=== PATIENT | female | born 1990 | race Caucasian/White ===

== ENCOUNTER → 2021-10-02 | Outpatient (CLI) | payer BC ==
[2021-10-02 16:44] LABS: HEMOGLOBIN 12.2 gm/dl (12.3-15.3); RED BLOOD COUNT 4.01 M/UL (4.00-5.10); WHITE BLOOD COUNT 8.4 K/UL (4.5-11.0)
[2021-10-04 07:10] LABS: PROGESTERONE 15.2 ng/mL (.)
[2021-10-04 08:10] LABS: HBSAG SCREEN Negative (Negative); HCV AB <0.1 (0.0-0.9); HEPATITIS B SURF AB QUANT 165.5 mIU/mL (Immunity>9.9); HIV AB/P24 AG SCREEN Non Reactive (Non Reactive)
[2021-10-05 13:11] LABS: TREPONEMA PALLIDUM ANTIBODIES Non Reactive (Non Reactive)
[2021-10-05 22:06] LABS: CHLAMYDIA BY NAA Negative (Negative); GONOCOCCUS BY NAA Negative (Negative); TRICH VAG BY NAA Negative (Negative)
[2021-10-06 08:14] LABS: RUBELLA ANTIBODIES, IGG 2.72 index (Immune >0.99)
== END ==
LOC: LAB 16:01
PROVIDERS: Obstetrics & Gynecology
DX: Z34.91 Encounter for supervision of normal pregnancy, unspecified, first trimester (principal)
CPT/HCPCS: 81001; 84144; 84443; 84702; 85025; 86317; 86762; 86765; 86780; 86787; 86803; 86900; 86901; 87086; 87340; 87389; 87661